=== PATIENT | male | born 1990 | race African-American/Black ===

== ENCOUNTER 2023-03-04 14:08 | Emergency (ER) | payer OTHER ==
[~2023-03-04] VITALS: Ht 163.8 cm; Wt 75.3 kg
[2023-03-04 14:15] VITALS: BP 101/61; TEMP 99.1
== END 2023-03-04 15:41 | disposition home or self-care (01) ==
LOC: ED 14:08
PROC: 0HQ1XZZ Repair Face Skin, External Approach (ICD-10-PCS; principal; 2023-03-04)
DX: S01.21XA Laceration without foreign body of nose, initial encounter (principal); V89.2XXA Person injured in unspecified motor-vehicle accident, traffic, initial encounter
CPT/HCPCS: 99283